=== PATIENT | male | born 1960 | race Caucasian/White ===

== ENCOUNTER → 2016-07-21 | Outpatient (CLI) | payer BC, OTHER ==
[~2016-07-21] MED LIST: AGG PO; ATOR-24 PO; CHOL1000 PO; FERR325T18 PO; INSU100I23 SQ; LISI-729 PO; NVLG SQ; RXC5 PO
[2016-07-21 13:26] LABS: ESTIMATED AVERAGE GLUCOSE 237 mg/dl; HA1C FLAG Normal (Normal)
[2016-07-21 14:18] LABS: ALT/SGPT 28 U/L (12-78); BLOOD UREA NITROGEN 14 mg/dl (7-18); BUN/CREATININE RATIO 14.7 (10-20); CARBON DIOXIDE 29 mmol/L (21-32); CHLORIDE 101 mmol/L (98-107); CHOLESTEROL 128 mg/dl (0-200); CREATININE 0.94 mg/dl (0.60-1.40); GLUCOSE 256 mg/dl (70-99); POTASSIUM 3.9 mmol/L (3.5-5.1); SODIUM 136 mmol/L (136-145); TRIGLYCERIDES 56 mg/dl (0-150); VERY LOW DENSITY LIPOPROT CALC 11 mg/dl
[2016-07-21 14:22] LABS: ALB/GLOB RATIO 1.2 (0.9-2); ALKALINE PHOSPHATASE 144 U/L (45-117); AST/SGOT 18 U/L (15-37); CHOLESTEROL/HDL RATIO 2.1; HDL CHOLESTEROL 61 mg/dl; LDL CHOLESTEROL CALCULATED 56 mg/dl
== END | disposition home or self-care (01) ==
LOC: C.LABMFLN 07:00
PROVIDERS: ATTEND Family Medicine
DX: E55.9 Vitamin D deficiency, unspecified (principal); E11.9 Type 2 diabetes mellitus without complications; I10 Essential (primary) hypertension; E78.5 Hyperlipidemia, unspecified; E53.8 Deficiency of other specified B group vitamins

== ENCOUNTER → 2016-10-21 | Outpatient (CLI) | payer OTHER ==
[~2016-10-21] MED LIST changes: -RXC5 PO
[2016-10-21 13:42] LABS: BASO % 0.2 %; BASO ABS # 0.01 K/uL (0-0.2); COMPLETE YES; HEMATOCRIT 37.8 % (42-52); IG% 0.4 %; LYMPH % 25.7 %; MEAN CELL VOLUME 76.8 fL (80-100); MEAN CORPUSCULAR HEMOGLOBIN 22.4 pg (25-34); MEAN CORPUSCULAR HGB CONC 29.1 g/dl (32-36); MEAN PLATELET VOLUME 10.9 fL (7.4-10.4); MONO % 8.7 %; PLATELET COUNT 262 K/uL (130-400); RED BLOOD COUNT 4.92 M/uL (4.7-6.1); WHITE BLOOD COUNT 5.06 K/uL (4.8-10.8)
[2016-10-21 13:59] LABS: ALT/SGPT 27 U/L (12-78); AST/SGOT 19 U/L (15-37); BLOOD UREA NITROGEN 11 mg/dl (7-18); BUN/CREATININE RATIO 11.2 (10-20); CARBON DIOXIDE 27 mmol/L (21-32); CHLORIDE 105 mmol/L (98-107); CREATININE 0.97 mg/dl (0.60-1.40); GLUCOSE 210 mg/dl (70-99); POTASSIUM 4.2 mmol/L (3.5-5.1); SODIUM 138 mmol/L (136-145)
[2016-10-21 14:03] LABS: ALB/GLOB RATIO 1.1 (0.9-2); ALKALINE PHOSPHATASE 130 U/L (45-117); CHOLESTEROL 115 mg/dl (0-200); CHOLESTEROL/HDL RATIO 2.3; HDL CHOLESTEROL 51 mg/dl; LDL CHOLESTEROL CALCULATED 54 mg/dl; TOTAL IRON BINDING CAPACITY 385 mcg/dl (250-450); TRIGLYCERIDES 51 mg/dl (0-150); VERY LOW DENSITY LIPOPROT CALC 10 mg/dl
[2016-10-22 07:25] LABS: ESTIMATED AVERAGE GLUCOSE 237 mg/dl; HA1C FLAG Normal (Normal)
== END | disposition home or self-care (01) ==
LOC: C.LABMFLN 07:00
PROVIDERS: ATTEND Family Medicine
DX: E55.9 Vitamin D deficiency, unspecified (principal); E11.9 Type 2 diabetes mellitus without complications; I10 Essential (primary) hypertension; E78.5 Hyperlipidemia, unspecified; E53.8 Deficiency of other specified B group vitamins

== ENCOUNTER 2017-01-26 07:07 | Inpatient (IN) | payer OTHER ==
[2017-01-05 11:14] VITALS: BMI 28.0
--- NOTE | 2017-01-05 11:45 | PAT Medication Instructions ---
Service Date Jan 05, 2017. Current Home Medication List Atorvastatin (Lipitor), 40 MG PO QAM Cholecalciferol (Vitamin D3), 1 TAB PO QAM Dipyridamole/Aspirin (Aggrenox 25-200 mg), 1 CAP PO BID Ferrous Gluconate (Ferrous Gluconate), 324 MG PO QAM Insulin Aspart (Novolog), 10-20 UNITS SQ AC Insulin Glargine (Basaglar Kwikpen), 50 UNITS SQ QAM Lisinopril (Zestril), 5 MG PO QAM Medication Instructions For Your Scheduled Surgery - Hold the following medications 2 weeks prior to surgery PER SURGEON'S INSTRUCTIONS (AND CHECK WITH YOUR PRESCRIBER): Dipyridamole/Aspirin (Aggrenox 25-200 mg), 1 CAP PO BID - Hold the following medications the morning of surgery: Lisinopril (Zestril), 5 MG PO QAM Insulin Aspart (Novolog), 10-20 UNITS SQ AC Ferrous Gluconate (Ferrous Gluconate), 324 MG PO QAM Cholecalciferol (Vitamin D3), 1 TAB PO QAM - Take the following medications the morning of surgery with a sip of water: Atorvastatin (Lipitor), 40 MG PO QAM - Take the following medications as scheduled the night before surgery: Insulin Aspart (Novolog), 10-20 UNITS SQ AC - For Insulin Dependent Diabetic patients: Test blood sugar A.M. of surgery. - If Blood sugar is GREATER THAN 150, take half of your regular dose of: Insulin Glargine (Basaglar Kwikpen), 50 UNITS SQ QAM - If Blood sugar is LESS THAN 150, do not take any: Insulin Glargine ( Basaglar Kwikpen), 50 UNITS SQ QAM If you have any questions please call us at [phone] or [phone] or [phone]
[2017-01-05 12:41] LABS: URINE APPEARANCE CLEAR (CLEAR); URINE BILIRUBIN NEG (NEG); URINE COLOR YELLOW; URINE NITRITE NEG (NEG); URINE SPECIFIC GRAVITY 1.031 (1.000-1.030); UROBILINOGEN NEG (NEG); ZZUR CULT IF INDIC CLEAN CATCH NO
[2017-01-05 12:42] LABS: BASO % 0.1 %; BASO ABS # 0.01 K/uL (0-0.2); COMPLETE YES; EOS % 0.6 %; HEMATOCRIT 40.7 % (42-52); IG% 0.1 %; LYMPH % 19.1 %; LYMPH ABS # 1.28 K/uL (1.2-3.4); MEAN CELL VOLUME 75.5 fL (80-100); MEAN CORPUSCULAR HEMOGLOBIN 22.4 pg (25-34); MEAN CORPUSCULAR HGB CONC 29.7 g/dl (32-36); MEAN PLATELET VOLUME 10.1 fL (7.4-10.4); MONO % 6.4 %; NEUT % 73.7 %; PLATELET COUNT 253 K/uL (130-400); RED BLOOD COUNT 5.39 M/uL (4.7-6.1); WHITE BLOOD COUNT 6.69 K/uL (4.8-10.8)
[2017-01-05 12:43] LABS: MANUAL MICROSCOPIC REQUIRED? NO; REVIEW REQ? NO
[2017-01-05 12:54] LABS: BUN/CREATININE RATIO 18.2 (10-20); CALCIUM 8.6 mg/dl (8.5-10.1); CREATININE 0.92 mg/dl (0.60-1.40); POTASSIUM 4.6 mmol/L (3.5-5.1)
[~2017-01-26] VITALS: Ht 195.6 cm; Wt 107.9 kg
[2017-01-26] VITALS (10 sets, daily range): BP systolic 123–160; BP diastolic 67–90; PULSE 69–113; TEMP 36.4–36.9; O2SAT 96–100; BMI 28.0
[~2017-01-26 07:07] MED LIST changes: +CEFAZOLIN 2000MG IV PUSH 10 ML IV SCH; +LACTATED RINGER'S 1000ML 1,000 ML IV SCH
[2017-01-26 07:57] LABS: PROTHROMBIN TIME (PATIENT) 10.8 SECONDS (9.0-12.0)
[2017-01-26] MEDS ORDERED: MIDAZOLAM HCL 1 MG/ML 2ML VIAL ONE (09:00)
[2017-01-26] MEDS ORDERED: FENTANYL CITRATE INJ 50 MCG/1 ML 2 ML VIAL ONE ×4 (09:00→11:50)
--- NOTE | 2017-01-26 09:20 | History & Physical Bridge Note ---
H&P Re-Evaluation Bridge Note: I have examined the patient, reviewed the History & Physical and in the interval since the performance of the History & Physical I have noted the following changes of clinical significance: No changes noted
--- NOTE | 2017-01-26 09:21 | History and Physical ---
History & Physical Date Jan 26, 2017. Chief Complaint Back and leg pain History of Present Illness The patient is a 56 year old male with complaints of back and leg pain Additional History Hepatic Disease: No Endocrine Disorder: No Kidney Disease: No Hypertension: Yes Heart Disease: No Bleeding Tendencies: No Infectious Diseases: No Allergies Coded Allergies: No Known Allergies (Unverified , 01/26/17) Home Medications Scheduled Atorvastatin (Lipitor), 40 MG PO QAM Cholecalciferol (Vitamin D3), 1 TAB PO QAM Dipyridamole/Aspirin (Aggrenox 25-200 mg), 1 CAP PO BID Ferrous Gluconate (Ferrous Gluconate), 324 MG PO QAM Insulin Aspart (Novolog), 10-20 UNITS SQ AC Insulin Glargine (Basaglar Kwikpen), 50 UNITS SQ QAM Lisinopril (Zestril), 5 MG PO QAM Physical Examination Skin: warm/dry, no rash Eyes: normal inspection, EOMI, sclerae normal ENT: normal ENT inspection, pharynx normal Head: normocephalic, atraumatic Neck: supple, no adenopathy, trachea midline Respiratory/Chest: lungs clear, normal breath sounds, no respiratory distress Cardiovascular: regular rate, rhythm, no edema, no murmur Abdomen / GI: normal bowel sounds, non tender Back: normal inspection Extremities: normal inspection, normal range of motion Neurologic/Psych: no motor/sensory deficits, alert, normal reflexes, oriented x 3 Diagnosis Lumbar spinal stenosis Plan of Treatment L4-L5 decompression fusion
[2017-01-26] MEDS ORDERED: BUPIVACAINE/EPINEPHRINE 0.5% MPF 1:200,000 30 ML VIAL ONE (09:44)
[2017-01-26] MEDS ORDERED: BACITRACIN 50000 UNIT VIAL ONE (09:44)
[2017-01-26] MEDS ORDERED: HYDROmorphone INJ 2 MG/ML SYR/VIAL ONE ×2 (10:15→11:48)
[2017-01-26] MEDS ORDERED: ONDANSETRON INJ 2 MG/ML 2 ML VIAL IV PRN ×2 (10:30→12:00)
[2017-01-26] MEDS ORDERED: ATROPINE SULFATE 0.1 MG/ML 5ML SYR IV PRN (10:30)
[2017-01-26] MEDS ORDERED: LABETALOL HCL IV 5 MG/ML 20ML IV PRN (10:30)
[2017-01-26] MEDS ORDERED: FLOSEAL HEMOSTATIC MATRIX 10ML TOP ONE (11:43)
[2017-01-26] MEDS ORDERED: DEXAMETHASONE SOD INJ 4 MG/ML VIAL ONE (11:45)
[2017-01-26] MEDS ORDERED: LIDOCAINE HCL 2% 2 ML VIAL (20MG/ML) ONE (11:45)
[2017-01-26] MEDS ORDERED: ROCURONIUM BROMIDE 10 MG/ML 5 ML VIAL IV ONE (11:45)
[2017-01-26] MEDS ORDERED: PROPOFOL IV EMULSION 10 MG/ML 20 ML VIAL IV ONE (11:45)
[2017-01-26] MEDS ORDERED: PHENYLEPHRINE 100MCG/ML 5ML SYR ONE (11:45)
[2017-01-26] MEDS ORDERED: NEOSTIGMINE METHYLSULFATE 1 MG/ML 10ML VIAL ONE (11:49)
[2017-01-26] MEDS ORDERED: KETOROLAC TROMETHAMINE 30 MG/ML VIAL ONE (11:49)
[2017-01-26] MEDS ORDERED: SODIUM CHLORIDE 0.9% 1000ML 1,000 ML IV SCH (11:49)
[2017-01-26] MEDS ORDERED: GLYCOPYRROLATE INJ 0.2 MG/ML VIAL ONE (11:49)
[2017-01-26] MEDS ORDERED: PROMETHAZINE HCL INJ 12.5 MG in SODIUM CHLORIDE 0.9% 50ML 50 ML IV PRN (12:00)
[2017-01-26] MEDS ORDERED: ACETAMINOPHEN 500 MG TAB PO PRN (12:00)
[2017-01-26] MEDS ORDERED: DO NOT ADMINISTER FLU VACCINE PRN ×3 (12:00)
[2017-01-26] MEDS ORDERED: SOD PHOSPHATE/SOD BIPHOSPHATE ENEMA 132 ML BTL PR PRN (12:00)
[2017-01-26] MEDS ORDERED: ACETAMINOPHEN IV 100 ML IV PRN (12:00)
[2017-01-26] MEDS ORDERED: hydrOXYzine HCL 25 MG TAB PO PRN (12:00)
[2017-01-26] MEDS ORDERED: DO NOT ADMINISTER PNEUMOCOCCAL VACCINE PRN ×2 (12:00)
[2017-01-26] MEDS ORDERED: BISACODYL 10 MG SUPP PR PRN (12:00)
[2017-01-26] MEDS ORDERED: ALUMINUM/MAGNESIUM SUSP 30 ML UDC PO PRN (12:00)
[2017-01-26] MEDS ORDERED: LORAZEPAM 0.5 MG TAB PO PRN (12:00)
[2017-01-26] MEDS ORDERED: NALOXONE HCL 0.4 MG/1 ML VIAL/CARP IV PRN (12:00)
[2017-01-26] MEDS ORDERED: LORAZEPAM INJ 0.5 MG in SYRINGE 0.75 ML IV PRN (12:00)
[2017-01-26] MEDS ORDERED: METOCLOPRAMIDE HCL INJ 5 MG/ML 2 ML VIAL IV PRN (12:00)
[2017-01-26] MEDS ORDERED: MAGNESIUM HYDROXIDE SUSP 30 ML UDC PO PRN (12:00)
[2017-01-26] MEDS ORDERED: FAMOTIDINE 20 MG TAB PO PRN (12:00)
[2017-01-26] MEDS ORDERED: HYDROmorphone HCL 0.5MG/ML 50 ML CASSETTE ONE (12:07)
--- NOTE | 2017-01-26 12:25 | [facility] Operative Report ---
Operative Report Operative Date Jan 26, 2017. Pre-Operative Diagnosis Lumbar spinal stenosis Post-Operative Diagnosis Lumbar spinal stenosis Procedure(s) Performed #1 lumbar decompression medial facetectomies foraminotomies L3 4 L4 5. #2 posterior spinal fusion L4 5. #3 placement posterior instrumentation L4 5. #4 interbody fusion L4 5. #5 placement peek cage 13 x 26 mm at L4 5. #6 placement locally harvested morcellized autograft in the posterior lateral gutters. #7 placement of ostial amp bone graft in the interbody space and posterior gutters. Surgeon Dr. Nicanor Camacho Animated Cartoons Painter Surgeon(s) Christine Doe PA-C Estimated Blood Loss 650mL Findings Severe spinal stenosis Specimens None Description of Procedure Patient was met with preoperatively case discussed all questions are dressed. That point patient was taken back to the operative suite after undergoing successful intubation placed in a prone position the [place] table top Prasad frame all bony promises well-padded eyes inspected to ensure that no external pressure placed upon them. This point the lumbar spine was prepped and draped in the normal sterile fashion. Sharp dissection with the assistance of Bovie cautery was performed onto an exposing the lamina and transverse processes of L4 and L5. From a caudal cephalad fashion complete laminectomy of L4 partial laminectomy L3 was performed addressing severe lateral recess and foraminal stenosis. Pedicle screws then placed in L4-L5 bilaterally with assistance of fluoroscopy in the purposes angela placed. Through a transforaminal approach on the right complete discectomy of L4 5 was performed and plate created to subcortical bleeding bone and a 13 x 26 mm peek cage filled with ostial amp bone graft tapped into position. The rods were then locked and final position bilaterally. The transverse processes of L4 and L5 burred to subcortical bleeding bone. The remaining osteo-amp and locally harvested morcellized autograft was placed and posterior gutters. 15 round MAMTA drain inserted. Incision was then closed with 1 Vicryl in the fascia 2-0 Vicryl subcutaneous C 4 Monocryl for final skin closure Steri-Strips sterile dressings placed. Patient we can take PACU stable condition. Please note Christine Horvath was present at the entire procedure involved in patient positioning complex portions of the surgery and final skin closure. I attest to the content of the Intraoperative Record and any orders documented therein. Any exceptions are noted below.
[2017-01-26] MEDS: HYDROmorphone INJ 2 MG/ML SYR/VIAL IV PRN ×2 (12:41→12:47)
[2017-01-26] MEDS ORDERED: PHARMACY GLYCEMIC MGMT CONSULT PRN (12:56)
--- NOTE | 2017-01-26 13:12 | Anesthesiology Progress Note ---
Anesthesia Post Op Note Date & Time Jan 26, 2017 at 13:12 Vital Signs Vital Signs Past 12 Hours Date Time Temp Pulse Resp B/P (MAP) Pulse Ox O2 Delivery O2 Flow Rate FiO2 01/26/17 12:01 36.6 86 18 172/103 100 Mask 10 01/26/17 07:49 36.9 78 18 141/89 97 Room Air Notes Mental Status: alert / awake / arousable, participated in evaluation Pt Amnestic to Procedure: Yes Nausea / Vomiting: adequately controlled Pain: adequately controlled Airway Patency, RR, SpO2: stable & adequate BP & HR: stable & adequate Hydration State: stable & adequate Anesthetic Complications: no major complications apparent
--- NOTE | 2017-01-26 13:20 | DIAGNOSTIC IMAGING REPORT ---
LUMBAR SPINE 2 OR 3 VIEW HISTORY: 56 years-old Male L4-5 DECOMPRESSION/FUSION status post L4-L5 decompression and fusion COMPARISON: None available TECHNIQUE: 2 spot fluoroscopic images of the lumbar spine were obtained utilizing 11.5 seconds fluoroscopy time. Interpretation was performed after the conclusion of the surgery. FINDINGS: Status post discectomy with posterior interbody angela and screw fusion and laminectomy at L4-L5. Alignment appears satisfactory. Mild spondylitic spurring noted. IMPRESSION: Fluoroscopic assistance as above. Please see procedural report for further details. The above report was generated using voice recognition software. It may contain grammatical, syntax or spelling errors. Electronically signed by: Eddie Moser M.D. 01/26/2017 1:18 PM Dictated Date/Time: 01/26/2017 1:17 PM
[2017-01-26] MEDS ORDERED: GLUCAGON FOR INJ 1 MG VIAL SQ PRN (14:00)
[2017-01-26] MEDS ORDERED: DEXTROSE 50% 50 ML SYR IV PRN (14:00)
[2017-01-26] MEDS ORDERED: GLUCOSE 10 TABS/TUBE PO PRN (14:00)
[2017-01-26] MEDS ORDERED: GLUCOSE 40% GEL 15 GM TUBE PO PRN (14:00)
--- NOTE | 2017-01-26 14:02 | Pharmacy Progress Note ---
Glycemic Control Intl Consult Date of Service Jan 26, 2017. Scope Glycemic Pharmacist consulted by Dr Camacho on 01/26/17 for glycemic control and to write orders per [facility] inpatient glycemic control protocol Objective Weight (Kilograms): 107.90 Accuchecks BSG (last 24hrs): Test 01/26/17 07:57 01/26/17 12:21 Bedside Glucose 145 mg/dl (70-99) 188 mg/dl (70-99) Recent Pertinent Medications Outpatient Anti-diabetic Regimen: * Insulin glargine 50 units SQ qAM + Novolog 10-20 units AC * 25 units taken on day of surgery * A1c = 9.9 % 10/21/16 Risk Factors for Insulin Resistance: * Steroids: Dexamethasone 12 mg IV pre-op, then 6 mg IV q8h x 3 * Recent Surgery: POD #0 lumbar decompression and fusion * Diet: T2DM Assessment & Plan ASSESSMENT: * 56 yr old T2DM male s/p L4-L5 decompression and fusion. * Pt maintained on 80-110 units of insulin per day as outpatient; A1c 9.9% > 3 months ago. A1c ordered for tomorrow. * Pt ordered high dose IV steroids x 24 hours post operatively. * Initial insulin doses will be determined by stressing the pt's home dose; average of ~95 units/day + stress of 2-3 * ADA & AACE recommend a goal blood sugar range 140-180 mg/dl for the majority of critically ill & non-critically ill patients. However, more stringent targets may be selected in individual cases. Will utilize more stringent goal of 110-140mg/dl based on patient age & comorbidities. Additionally, tighter glycemic control is warranted to facilitate wound/infection healing. PLAN FOR INPATIENT GLYCEMIC CONTROL: * Basal insulin with LANTUS * 25 units SQ (taken this am prior to admission) * 60 units SQ today with dinner * Further orders will be based on fasting BSG on 01/27 * Correctional Insulin with NOVOLOG per scale ACHS * Goal Range: Low 110 mg/dL - High 140 mg/dL * Correction Factor: 10 mg/dL/unit * Nutritional / Prandial insulin per carb ratio of 1 unit per 3 grams CHO consumed * Overnight check with coverage at 00 and 04 * Please note that the plan above was derived based on current level of insulin resistance and hospital stress. These recommendations are appropriate for inpatient admission only. Plan of care upon discharge will need to be reassessed to avoid potential outpatient hypo/hyperglycemia. Thank you.
[2017-01-26] MEDS: HYDROmorphone HCL 0.5MG/ML 50 ML CASSETTE IV PRN ×3 (14:19→23:18)
[2017-01-26] MEDS: LACTATED RINGER'S 1000ML 1,000 ML IV SCH ×2 (15:53→20:52)
[2017-01-26] MEDS ORDERED: INSULIN GLARGINE SOLOSTAR 100 UNITS/ML 3 ML PEN SC ONE (17:45)
[2017-01-26] MEDS: INSULIN ASPART 100 UNITS/ML 3 ML PEN SC SCH ×2 (17:59→21:57)
[2017-01-26] MEDS: CEFAZOLIN IV 2,000 MG in SYRINGE 0 ML IV SCH (18:06)
[2017-01-26] MEDS: DEXAMETHASONE INJ 6 MG in SYRINGE 0 ML IV SCH (18:06)
[2017-01-26] MEDS: DOCUSATE SODIUM/SENNA 50/8.6MG TAB PO SCH (20:52)
[2017-01-27] MEDS: DEXAMETHASONE INJ 6 MG in SYRINGE 0 ML IV SCH ×2 (02:18→10:24)
[2017-01-27] MEDS: LACTATED RINGER'S 1000ML 1,000 ML IV SCH (02:18)
[2017-01-27] MEDS: CEFAZOLIN IV 2,000 MG in SYRINGE 0 ML IV SCH (02:18)
[2017-01-27 04:00] VITALS: BP 125/67; PULSE 67; TEMP 36.9; O2SAT 97
[2017-01-27] MEDS: INSULIN ASPART 100 UNITS/ML 3 ML PEN SC SCH ×6 (04:00→21:53)
[2017-01-27] MEDS ORDERED: NURSING DECISION MEDICATION ORDER SCH (05:00)
[2017-01-27] MEDS ORDERED: HYDROmorphone INJ 1 MG/ML SYR IV PRN (06:00)
[2017-01-27] MEDS ORDERED: HYDROmorphone INJ 0.5 MG/0.5 ML SYR IV PRN (06:00)
[2017-01-27] MEDS ORDERED: DC PCA SCH (06:00)
[2017-01-27] MEDS ORDERED: NALOXONE HCL 0.4 MG/1 ML VIAL/CARP IV PRN (06:00)
[2017-01-27] MEDS ORDERED: VOLUVEN IN NSS ONE (06:32)
[2017-01-27 07:10] VITALS: BP 125/68; PULSE 66; TEMP 36.9; O2SAT 96
[2017-01-27 07:25] LABS: COMPLETE YES; HEMATOCRIT 32.4 % (42-52); IG% 0.3 %; LYMPH % 4.9 %; LYMPH ABS # 0.58 K/uL (1.2-3.4); MEAN CELL VOLUME 75.9 fL (80-100); MEAN CORPUSCULAR HEMOGLOBIN 22.7 pg (25-34); MEAN CORPUSCULAR HGB CONC 29.9 g/dl (32-36); MEAN PLATELET VOLUME 10.5 fL (7.4-10.4); MONO % 3.7 %; NEUT % 91.1 %; PLATELET COUNT 229 K/uL (130-400); RED BLOOD COUNT 4.27 M/uL (4.7-6.1); WHITE BLOOD COUNT 11.79 K/uL (4.8-10.8)
[2017-01-27] MEDS ORDERED: RXC5 PO (07:31)
--- NOTE | 2017-01-27 07:32 | Discharge Instructions ---
Discharge Instructions Date of Service Jan 27, 2017. Admission Reason for Admission: Spinal Stenosis Discharge Discharge Diagnosis / Problem: lumbar spinal stenosis Discharge Goals Goal(s): Improve function Activity Recommendations Activity Limitations: per Instructions/Follow-up section . Instructions / Follow-Up Instructions / Follow-Up ACTIVITY RECOMMENDATIONS: SELF CARE INSTRUCTIONS AFTER THORACIC/LUMBAR FUSIONS 1. You may walk to your tolerance. It is good exercise for your legs and back. Expect some back and intermittent leg aches and pains. 2. You may perform "counter-top" level activities (make a sandwich, larry with a project, etc.). 3. No bending or lifting of more than 10 pounds or back twisting of any nature (roll like a log when turning in bed). 4. You may ride in a car for 20-30 minutes at a time. No driving until after your first visit with your doctor. 5. Frequent changes of position and restricting sitting to 30 minutes at a time will help limit the amount of back spasms and stiffness you may experience. 6. You may discontinue the use of ambulatory aids (cane, crutches, etc.) once your strength and confidence allow. 7. You may staff development coordinator the shower and let water strike your incision when you arrive home at least once daily. Do not take a tub bath, sit in a hot tub or go into a swimming pool until after your first recheck in the office. SPECIAL CARE INSTRUCTIONS: VERY IMPORTANT TO READ AND REVIEW A. Your surgical incision has been closed with a cosmetic suture under the skin that will dissolve in about 6 weeks. In 14 days, you can use a pair of clean scissors and cut the suture that is left outside of the skin at the ends of your incision. 1. The small skin tapes can be removed 7 days after surgery if they have not fallen off by that point. 2. You may keep the wound open to air as much as possible to promote healing after post-op day number 5 unless told otherwise by your doctor. 3. If you think the wound looks like it is becoming infected (redness or worsening drainage) and/or you are experiencing fever, chill or worsening back pain and muscle spasms, contact the office so that we may evaluate you as soon as possible. B. Complications are uncommon, but please contact us if you have any signs or symptoms of: 1. wound infection (fever higher than 102.5 degrees F, redness, separation of wound, drainage, or increasing pain from the incision) 2. blood clots in legs (pain, swelling, redness and warmth in legs) 3. urinary tract infection (fever higher than 102.5 degrees F, burning upon urination or increased frequency of urination) 4. nerve problems (inability to walk on your toes or heels, numbness, loss of bowel or bladder control) 5. any other symptoms that concern you C. Please call the office at if you have any concerns or questions about your operation or recovery. D. No smoking! Smoking drastically decreases the chance of a solid fusion. E. Do not take any anti-inflammatory medications (Indocin, Advil, Motrin, Aspirin, Naprosyn, etc.) as these may inhibit the chance of a solid fusion. Tylenol is okay to take for pain. MANAGING PAIN AFTER SPINAL SURGERY 1. Narcotic medication is intended for short-term use and will be provided for surgical pain. Surgical pain usually lasts for a period of 4-6 weeks. Narcotic medication includes Percocet, Vicodin, Darvocet, Tylenol #3 or Lortab. 2. Longer-term pain is more appropriately treated with non-narcotic medication such as Tylenol ES. 3. Muscle spasm is not appropriately treated with narcotics. Muscle relaxers such as Soma, Flexeril or Skelaxin can be used along with Tylenol ES. 4. Remember that we all live with some "aches and pains". This is not unusual or uncommon after an injury or as we get older. a. Back pain is expected and may include muscle spasms for 4 to 6 weeks after surgery. The pain should gradually improve. If the pain worsens for no apparent reason, please contact the office. b. Intermittent leg pain may also be experienced and should not be concerned about unless it worsens for no apparent reason. If so, please contact the office. 5. We will provide appropriate medication within the normal guidelines of their prescribed use. We will also be very cautious and aware of potential abuse and extended duration of patients' medication needs. a. Pain medications are for your comfort and to assist with sleep and rest so that the tissue can heal. They are not provided in order to return to normal activity and should not be used through the day. To do so or worsening pain at night can result from ongoing tissue damage and development of tolerance to the prescribed medicine. 6. Please allow 2-3 days to process refills. Prescriptions will not be mailed but must be picked up at the office. FOLLOW UP VISIT: Keep your scheduled follow-up appointment. Any questions, please call the office at . Current Hospital Diet Patient's current hospital diet: Diabetes Type 2 Diet Discharge Diet Recommended Diet: Regular Diet Procedures Procedures Performed: #1 lumbar decompression medial facetectomies foraminotomies L3 4 L4 5. #2 posterior spinal fusion L4 5. #3 placement posterior instrumentation L4 5. #4 interbody fusion L4 5. #5 placement peek cage 13 x 26 mm at L4 5. #6 placement locally harvested morcellized autograft in the posterior lateral gutters. #7 placement of ostial amp bone graft in the interbody space and posterior gutters. Pending Studies Studies pending at discharge: no Laboratory Results Hemoglobin A1c Test 01/27/17 06:48 Range/Units Medical Emergencies . Who to Call and When: Medical Emergencies: If at any time you feel your situation is an emergency, please call 911 immediately. . Non-Emergent Contact Non-Emergency issues call your: Primary Care Provider . "Provider Documentation" section prepared by Nicanor Camacho. . VTE Core Measure Inpt VTE Proph given/why not?: Renetta Melgar, AGUST[facility]'s
[2017-01-27 07:51] LABS: CALCIUM 8.6 mg/dl (8.5-10.1); CREATININE 0.85 mg/dl (0.60-1.40); POTASSIUM 4.4 mmol/L (3.5-5.1)
[2017-01-27 08:20] LABS: ESTIMATED AVERAGE GLUCOSE 209 mg/dl; HA1C FLAG Normal (Normal)
[2017-01-27] MEDS: ATORVASTATIN 40 MG TAB PO SCH (08:35)
[2017-01-27] MEDS: LISINOPRIL 5 MG TAB PO SCH (08:36)
[2017-01-27] MEDS: OXYCODONE HCL IR 5 MG TAB (IMMEDIATE RELEASE) PO PRN ×4 (08:39→23:53)
[2017-01-27] MEDS ORDERED: INSULIN GLARGINE SOLOSTAR 100 UNITS/ML 3 ML PEN SC SCH ×2 (09:00→21:00)
[2017-01-27] MEDS ORDERED: KETOROLAC TROMETHAMINE 30 MG/ML VIAL IV PRN (10:15)
[2017-01-27 11:06] VITALS: BP 143/74; PULSE 71; TEMP 36.5; O2SAT 96
[2017-01-27 13:29] VITALS: Ht 195.6 cm; Wt 107.9 kg
--- NOTE | 2017-01-27 13:51 | Pharmacy Progress Note ---
Glycemic Control Progress Note Date of Service Jan 27, 2017. Scope Glycemic Pharmacist consulted for glycemic control to write orders per [facility] inpatient glycemic control protocol. Objective Accuchecks BSG (last 24hrs): Test 01/26/17 17:28 01/26/17 20:33 01/26/17 23:58 01/27/17 04:00 Bedside Glucose 276 mg/dl (70-99) 285 mg/dl (70-99) 127 mg/dl (70-99) 140 mg/dl (70-99) Test 01/27/17 06:48 01/27/17 07:59 01/27/17 12:03 Random Glucose 147 mg/dl (70-99) Bedside Glucose 170 mg/dl (70-99) 236 mg/dl (70-99) HbA1c: Test 01/27/17 06:48 Hemoglobin A1c 8.9 % (4.5-5.6) H Recent Pertinent Medications Risk Factors for Insulin Resistance: * Steroids: Dexamethasone 12 mg IV pre-op, then 6 mg IV q8h x 3 (last dose @ 1000) * Recent Surgery: POD #1 lumbar decompression and fusion * Diet: T2DM Outpatient Anti-Diabetic Meds * Insulin glargine 50 units SQ qAM + Novolog 10-20 units AC Assessment & Plan ASSESSMENT: * 56 yr old T2DM male POD #1 s/p L4-L5 decompression and fusion. * Patient received 133 units of insulin over the past 24 hours * BSGs ranged from 127 to 285 mg/dL * 85 units of basal insulin * 48 units of bolus insulin (only represents 12 hr) * Fasting BSG of 170 mg/dL is above goal range. Lantus scale will be added tonight. Will attempt to keep majority of Lantus dose in the morning to aid with transition back to home regimen. * Post prandial BSG's are above goal range. Continue aggressive CF/CR until effects of dexamethasone have worn off. Continue overnight checks with coverage for tonight. PLAN FOR INPATIENT GLYCEMIC CONTROL: * Basal insulin * Lantus 60 units SQ this am * Lantus 10-20 units SQ qPM * Bolus insulin * NOVOLOG per scale ACHS * Goal Range: Low 110 mg/dL - High 140 mg/dL * Correction Factor: 10 mg/dL/unit * Nutritional / Prandial insulin per carb ratio of 1 unit per 3 grams CHO consumed * Overnight check with coverage at 00 and 04 DISCHARGE RECOMMENDATIONS: * Most recent A1c of 8.9 % from 01/27 has improved from 9.9%. This remains above goal for patient based on age and comorbidities. * Resume home regimen on discharge - continue to titrate per out patient regimen. * Please note that the plan above was derived based on current level of insulin resistance and hospital stress. These recommendations are appropriate for inpatient admission only. Plan of care upon discharge will need to be reassessed to avoid potential outpatient hypo/hyperglycemia. Thank you.
--- NOTE | 2017-01-27 14:08 | Progress Note ---
Progress Note Date of Service Jan 27, 2017. Progress Note Patient is status post lumbar decompression fusion. His leg pain is markedly improved. Back pain controlled. Vital signs stable. On exam he is comfortable has good strength testing. Assessment status post lumbar depression fusion replant this time will maintain the MAMTA drain in place for another 24 hours assess his progress tomorrow and possibly discharge home.
[2017-01-27 15:12] VITALS: BP 129/71; PULSE 71; TEMP 36.7; O2SAT 100
[2017-01-27 18:57] VITALS: BP 125/76; PULSE 82; TEMP 36.6; O2SAT 99
[2017-01-27] MEDS: DOCUSATE SODIUM/SENNA 50/8.6MG TAB PO SCH (22:51)
[2017-01-27 23:39] VITALS: BP 120/72; PULSE 68; TEMP 36.4; O2SAT 99
[2017-01-28] MEDS: INSULIN ASPART 100 UNITS/ML 3 ML PEN SC SCH ×4 (04:00→13:08)
[2017-01-28 04:02] VITALS: BP 130/70; PULSE 69; TEMP 36.7; O2SAT 99
[2017-01-28] MEDS: OXYCODONE HCL IR 5 MG TAB (IMMEDIATE RELEASE) PO PRN ×2 (04:51→12:16)
[2017-01-28] MEDS: POLYETHYLENE (MIRALAX) 17 GM PACK PO SCH ×2 (05:26→11:49)
[2017-01-28 07:10] VITALS: BP 112/68; PULSE 84; TEMP 36.6; O2SAT 97
[2017-01-28] MEDS: LISINOPRIL 5 MG TAB PO SCH (08:28)
[2017-01-28] MEDS: ATORVASTATIN 40 MG TAB PO SCH (08:28)
[2017-01-28] MEDS ORDERED: INSULIN GLARGINE SOLOSTAR 100 UNITS/ML 3 ML PEN SC SCH (09:00)
--- NOTE | 2017-01-28 10:51 | Pharmacy Progress Note ---
Glycemic Control Progress Note Date of Service Jan 28, 2017. Scope Glycemic Pharmacist consulted for glycemic control to write orders per [facility] inpatient glycemic control protocol. Objective Accuchecks BSG (last 24hrs): Test 01/27/17 12:03 01/27/17 17:10 01/27/17 21:17 01/27/17 23:56 Bedside Glucose 236 mg/dl (70-99) 102 mg/dl (70-99) 156 mg/dl (70-99) 175 mg/dl (70-99) Test 01/28/17 04:06 01/28/17 08:17 Bedside Glucose 136 mg/dl (70-99) 211 mg/dl (70-99) HbA1c: Test 01/27/17 06:48 Hemoglobin A1c 8.9 % (4.5-5.6) H Recent Pertinent Medications The patient is currently receiving: * Basal insulin: Lantus 60 units every 24 hours in the morning * Correctional Insulin: Novolog Correction per scale ACHS Goal Range: Low 110 mg/dL - High 140 mg/dL Correction Factor: 10 mg/dL/unit * Prandial insulin: Per carb ratio of 1 unit per 3 grams CHO consumed Outpatient Anti-Diabetic Meds Lantus 50 units qAM and Novolog 10-20 units AC (total 80-110 units/day) Assessment & Plan ASSESSMENT: * See progress note from 01/26/17 for more background info, in short: * Pt receiving SQ basal bolus insulin regimen for hyperglycemia secondary to baseline DM (outpatient regimen on hold), POD 2 for spinal surgery. * Patient is currently receiving an average of ~150 units of insulin per day * 80 units of basal insulin * 72 units of prandial/correctional insulin * BSGs ranging 102 - 236 mg/dl over the past 24hrs * Changes needed to insulin regimen: * AM Fasting BSG = 211 mg/dl. This is above goal range for patient based on inpatient targets and co-morbidities. This is the first day after steroids were given. Will continue the elevated dose of once daily Lantus *which reflects home dose stressed by 2*. Will provide a scale for tomorrow morning as uncertain how long steroid effects with linger. * Post-prandial BSGs appear to relatively well controlled by current ratio. Suspect that patient may require tighter carbohydrate control as after breakfast and supper the blood sugars were elevated. Monitor closely and tighten at lunch today if necessary. * Total daily dose = ~140-150 units/day. Suspect that patient's insulin requirements will decrease as steroid effects dissipate. PLAN FOR INPATIENT GLYCEMIC CONTROL: * STARTING Lantus 50-60 units SQ qAM (Lantus 50 units if blood sugar 180 mg/dL or less and Lantus 60 units if blood sugar greater than 180 mg/dL) * Continuing correction factor of 10 mg/dl/unit * Continuing carb ratio of 1 unit per 3 grams CHO consumed * Continuing goal range of Low 110 mg/dL - High 140 mg/dL RECOMMENDATIONS FOR DISCHARGE: * Patient's HbA1C is elevated with goal of HbA1C of 6.6-7.5% according to Elements of Diabetes Care Scoring Scale. Recommend counseling for diet and exercise as well as titrating insulin to goal blood sugars. Thank you.
--- NOTE | 2017-01-28 10:59 | Discharge Summary ---
Orthopedic Discharge Summary Admission Date/Reason Jan 26, 2017 at 09:30 Spinal Stenosis. Discharge Date/Disposition Jan 28, 2017 Home Diagnosis Principal Diagnosis: Lumbar spinal stenosis Admission Physical Exam As per Admitting History & Physical. Hospital Course Patient underwent lumbar decompression fusion tolerated this well was taken to the orthopedic floor postoperatively. Postoperative day #1 he was up and amatory progressed to postoperative day #2. MAMTA drain decreased appropriately. Subsequently is discharged home. Discharge orders and instructions can be found on the chart for further review. Discharge Instructions Please refer to the electronic Patient Visit Report (Discharge Instructions) for additional information.
[2017-01-28] MEDS ORDERED: INSULIN ASPART 100 UNITS/ML 3 ML PEN SC SCH (12:00)
[2017-01-28 13:24] VITALS: BP 112/68; PULSE 84; TEMP 36.6; O2SAT 97
[2017-01-29] MEDS ORDERED: INSULIN ASPART 100 UNITS/ML 3 ML PEN SC SCH (02:00)
[2017-01-29] MEDS ORDERED: INSULIN GLARGINE SOLOSTAR 100 UNITS/ML 3 ML PEN SC SCH (09:00)
== END 2017-01-28 14:24 | disposition home or self-care (01) | DRG 460 ==
LOC: C.ACU 07:07 → C.3E 09:30 → ENRESERV 13:17
PROVIDERS: ADMIT Orthopaedic Surgery Orthopaedic Surgery of the Spine; ATTEND Orthopaedic Surgery Orthopaedic Surgery of the Spine
PROC: 0SG10AJ Fusion of 2 or more Lumbar Vertebral Joints with Interbody Fusion Device, Posterior Approach, Anterior Column, Open Approach (ICD-10-PCS; principal; 2017-01-26 09:15)
DX: M48.061 Spinal stenosis, lumbar region without neurogenic claudication (principal)

== ENCOUNTER → 2017-03-10 | Outpatient (CLI) | payer OTHER ==
[~2017-03-10] MED LIST changes: -CEFAZOLIN 2000MG IV PUSH 10 ML IV SCH; -LACTATED RINGER'S 1000ML 1,000 ML IV SCH; +RXC5 PO
[2017-03-10 17:51] LABS: BASO % 0.3 %; BASO ABS # 0.02 K/uL (0-0.2); COMPLETE YES; EOS % 0.8 %; HEMATOCRIT 37.2 % (42-52); IG% 0.2 %; LYMPH % 24.9 %; LYMPH ABS # 1.61 K/uL (1.2-3.4); MEAN CELL VOLUME 77.7 fL (80-100); MEAN CORPUSCULAR HEMOGLOBIN 22.8 pg (25-34); MEAN CORPUSCULAR HGB CONC 29.3 g/dl (32-36); MEAN PLATELET VOLUME 9.9 fL (7.4-10.4); MONO % 6.5 %; NEUT % 67.3 %; PLATELET COUNT 279 K/uL (130-400); RED BLOOD COUNT 4.79 M/uL (4.7-6.1); WHITE BLOOD COUNT 6.47 K/uL (4.8-10.8)
[2017-03-10 18:25] LABS: ALT/SGPT 30 U/L (12-78); AST/SGOT 16 U/L (15-37); BLOOD UREA NITROGEN 11 mg/dl (7-18); BUN/CREATININE RATIO 13.1 (10-20); CALCIUM 8.8 mg/dl (8.5-10.1); CARBON DIOXIDE 28 mmol/L (21-32); CHLORIDE 106 mmol/L (98-107); CHOLESTEROL 113 mg/dl (0-200); CREATININE 0.83 mg/dl (0.60-1.40); GLUCOSE 94 mg/dl (70-99); SODIUM 137 mmol/L (136-145); TRIGLYCERIDES 71 mg/dl (0-150); VERY LOW DENSITY LIPOPROT CALC 14 mg/dl
[2017-03-10 18:29] LABS: ALB/GLOB RATIO 1.1 (0.9-2); ALKALINE PHOSPHATASE 136 U/L (45-117); CHOLESTEROL/HDL RATIO 2.1; HDL CHOLESTEROL 53 mg/dl; LDL CHOLESTEROL CALCULATED 46 mg/dl; TOTAL IRON BINDING CAPACITY 423 mcg/dl (250-450)
[2017-03-11 07:40] LABS: ESTIMATED AVERAGE GLUCOSE 197 mg/dl; HA1C FLAG Normal (Normal)
== END | disposition home or self-care (01) ==
LOC: C.LABMFLN 16:38
PROVIDERS: ATTEND Family Medicine
DX: E55.9 Vitamin D deficiency, unspecified (principal); I10 Essential (primary) hypertension; E78.5 Hyperlipidemia, unspecified; E53.8 Deficiency of other specified B group vitamins; D50.9 Iron deficiency anemia, unspecified; E11.40 Type 2 diabetes mellitus with diabetic neuropathy, unspecified

== ENCOUNTER → 2017-04-28 | Outpatient (CLI) | payer OTHER ==
[2017-04-28 17:57] LABS: BASO % 0.1 %; BASO ABS # 0.01 K/uL (0-0.2); EOS % 0.8 %; EOS ABS # 0.06 K/uL (0-0.5); HEMATOCRIT 39.7 % (42-52); HEMOGLOBIN 11.5 g/dL (14.0-18.0); IG# 0.01 K/uL (0.00-0.02); LYMPH % 20.2 %; LYMPH ABS # 1.53 K/uL (1.2-3.4); MEAN CELL VOLUME 77.5 fL (80-100); MEAN CORPUSCULAR HEMOGLOBIN 22.5 pg (25-34); MEAN PLATELET VOLUME 10.4 fL (7.4-10.4); MONO % 7.1 %; MONO ABS # 0.54 K/uL (0.11-0.59); NEUT % 71.7 %; NEUT ABS # 5.43 K/uL (1.4-6.5); PLATELET COUNT 289 K/uL (130-400); RED CELL DISTRIBUTION WIDTH CV 15.5 % (11.5-14.5); RED CELL DISTRIBUTION WIDTH SD 43.6 fL (36.4-46.3); WHITE BLOOD COUNT 7.58 K/uL (4.8-10.8)
[2017-04-28 18:25] LABS: BLOOD UREA NITROGEN 11 mg/dl (7-18); CARBON DIOXIDE 28 mmol/L (21-32); CREATININE 0.83 mg/dl (0.60-1.40); GLUCOSE 54 mg/dl (70-99); POTASSIUM 3.9 mmol/L (3.5-5.1); SODIUM 139 mmol/L (136-145); TRANSFERRIN 328 mg/dl (200-360)
== END | disposition home or self-care (01) ==
LOC: C.LABMFLN 10:58
PROVIDERS: ATTEND Family Medicine
DX: I10 Essential (primary) hypertension (principal); D50.9 Iron deficiency anemia, unspecified; E11.40 Type 2 diabetes mellitus with diabetic neuropathy, unspecified; Z79.4 Long term (current) use of insulin

== ENCOUNTER → 2017-07-29 | Outpatient (CLI) | payer OTHER ==
[2017-07-29 13:09] LABS: HEMATOCRIT 41.9 % (42-52); HEMOGLOBIN 12.7 g/dL (14.0-18.0)
[2017-07-29 13:53] LABS: HEMOGLOBIN A1C 8.7 % (4.5-5.6)
== END | disposition home or self-care (01) ==
LOC: C.LABMFLN 10:30
PROVIDERS: ATTEND Family Medicine
DX: E55.9 Vitamin D deficiency, unspecified (principal); E53.8 Deficiency of other specified B group vitamins; D50.9 Iron deficiency anemia, unspecified; E11.40 Type 2 diabetes mellitus with diabetic neuropathy, unspecified

== ENCOUNTER → 2017-10-27 | Outpatient (CLI) | payer OTHER ==
[2017-10-27 13:03] LABS: BASO % 0.2 %; BASO ABS # 0.01 K/uL (0-0.2); EOS % 0.9 %; EOS ABS # 0.04 K/uL (0-0.5); LYMPH % 31.6 %; LYMPH ABS # 1.43 K/uL (1.2-3.4); MEAN CELL VOLUME 81.7 fL (80-100); MEAN CORPUSCULAR HEMOGLOBIN 25.3 pg (25-34); MEAN PLATELET VOLUME 10.7 fL (7.4-10.4); MONO % 8.6 %; MONO ABS # 0.39 K/uL (0.11-0.59); NEUT % 58.7 %; NEUT ABS # 2.66 K/uL (1.4-6.5); PLATELET COUNT 219 K/uL (130-400); RED CELL DISTRIBUTION WIDTH CV 15.8 % (11.5-14.5); RED CELL DISTRIBUTION WIDTH SD 47.6 fL (36.4-46.3); WHITE BLOOD COUNT 4.53 K/uL (4.8-10.8)
[2017-10-27 13:45] LABS: ALBUMIN 3.5 gm/dl (3.4-5.0); ALKALINE PHOSPHATASE 133 U/L (45-117); ALT/SGPT 28 U/L (12-78); AST/SGOT 24 U/L (15-37); BLOOD UREA NITROGEN 12 mg/dl (7-18); CALCIUM 8.2 mg/dl (8.5-10.1); CARBON DIOXIDE 25 mmol/L (21-32); CHOLESTEROL 93 mg/dl (0-200); CREATININE 0.83 mg/dl (0.60-1.40); GLUCOSE 172 mg/dl (70-99); LDL CHOLESTEROL CALCULATED 46 mg/dl; POTASSIUM 3.9 mmol/L (3.5-5.1); SODIUM 137 mmol/L (136-145); TOTAL PROTEIN 6.5 gm/dl (6.4-8.2)
[2017-10-27 13:49] LABS: HEMOGLOBIN A1C 8.7 % (4.5-5.6)
== END | disposition home or self-care (01) ==
LOC: C.LABMFLN 06:58
PROVIDERS: ATTEND Family Medicine
DX: E55.9 Vitamin D deficiency, unspecified (principal); E53.8 Deficiency of other specified B group vitamins; D50.9 Iron deficiency anemia, unspecified; E11.40 Type 2 diabetes mellitus with diabetic neuropathy, unspecified; E11.65 Type 2 diabetes mellitus with hyperglycemia

== ENCOUNTER 2019-02-11 06:16 | Inpatient (IN) ==
--- NOTE | 2019-01-17 13:41 | PAT Medication Instructions ---
Medication Instructions Date of Service January 17, 2019 Home Medications Medication Instructions Recorded calcium carbonate 600 mg calcium 600 mg PO DAILY #90 tab 09/28/18 (1,500 mg) tablet pen needle, diabetic 32 gauge x #500 ea 09/28/18 1/4" ergocalciferol (vitamin D2) 50,000 50,000 units PO WEEKLY #12 cap 11/10/18 unit capsule aspirin 25 mg-dipyridamole 200 mg 1 cap PO BID #180 cap 12/03/18 capsule,ext.release 12 hr multiphase cyanocobalamin (vit B-12) 1,000 1,000 mcg SQ MONTHLY #3 ml 01/04/19 mcg/mL injection solution hydrocodone 5 mg-acetaminophen 325 1 tab PO QID PRN #100 tab 01/04/19 mg tablet syringe with needle 3 mL 25 x 5/8" #10 ea 01/04/19 calcium carbonate 600 mg calcium (1,500 mg) tablet 600 mg PO DAILY ergocalciferol (vitamin D2) 50,000 unit capsule 50,000 units PO WEEKLY aspirin 25 mg-dipyridamole 200 mg capsule,ext.release 12 hr multiphase 1 cap PO BID cyanocobalamin (vit B-12) 1,000 mcg/mL injection solution 1,000 mcg SQ MONTHLY hydrocodone 5 mg-acetaminophen 325 mg tablet 1 tab PO QID PRN Iron 27 mg PO DAILY atorvastatin 40 mg PO QAM dulaglutide [Trulicity] 1.5 mg SUBCUT WK insulin aspart U-100 [Novolog Flexpen U-100 Insulin] 10 unit SUBCUT TIDM insulin glargine [Basaglar KwikPen U-100 Insulin] 50 unit SUBCUT QAM lisinopril 5 mg PO QAM Continue as directed ergocalciferol (vitamin D2) 50,000 unit capsule 50,000 units PO WEEKLY cyanocobalamin (vit B-12) 1,000 mcg/mL injection solution 1,000 mcg SQ MONTHLY dulaglutide [Trulicity] 1.5 mg SUBCUT WK ASK your prescriber and surgeon aspirin 25 mg-dipyridamole 200 mg capsule,ext.release 12 hr multiphase 1 cap PO BID DO NOT take the morning of surgery calcium carbonate 600 mg calcium (1,500 mg) tablet 600 mg PO DAILY Iron 27 mg PO DAILY insulin aspart U-100 [Novolog Flexpen U-100 Insulin] 10 unit SUBCUT TIDM lisinopril 5 mg PO QAM Take morning of surgery With a small sip of water, OTHERWISE NOTHING TO EAT OR DRINK AFTER MIDNIGHT: hydrocodone 5 mg-acetaminophen 325 mg tablet 1 tab PO QID PRN (okay to take up to 4 hours prior to surgery if needed) atorvastatin 40 mg PO QAM Take evening before surgery hydrocodone 5 mg-acetaminophen 325 mg tablet 1 tab PO QID PRN (if needed) insulin aspart U-100 [Novolog Flexpen U-100 Insulin] 10 unit SUBCUT TIDM Insulin Dependent Diabetic Patients Check glucose morning of surgery. If glucose greater than 150, take HALF of the amount of insulin that you normally take: insulin glargine [Basaglar KwikPen U-100 Insulin] take 25 units If glucose less than 150, do not take any: insulin glargine [Basaglar KwikPen U-100 Insulin] Other Notes If you have any questions please call us at [phone] or [phone] or [phone] or [phone]
--- NOTE | 2019-01-18 10:57 | Anesthesiology Consultation ---
Date of Service January 18, 2019 Assessment & Plan (1) Encounter for pre-operative examination: - Check BSG AM DOS - Aspirin-dipyridamole (Aggrenox) instructions per surgeon/prescriber. Chart Review Chart Review: Pending: Refer to Additional Notes / Consult section (pending preop testing (labs, EKG, CXR)) and Patient seen in Pre Admission Testing Teaching & Discussion Pre-Anesthesia Teaching/Discussion Notes: Instructed NPO after midnight before surgery,except medications with 15 cc of water. Medication instructions provi ded according to the PAT guidelines. History Surgery Operation Date: 02/11/19 07:45 Proposed Procedures p L3-L4 Decompression and Fusion, L4-L5 Hardware Removal with Spinal Cord Monitoring - Nicanor Camacho, Height/Weight Height: 6 ft 6 in Weight: 109.6 kg Allergies Allergy/AdvReac Type Severity Reaction Status Date / Time No Known Drug Allergies Allergy Verified 01/12/19 11:24 Medications Home Medications Medication Instructions Recorded Confirmed Last Taken calcium carbonate 600 mg calcium 600 mg PO DAILY #90 tab 09/28/18 01/12/19 Unknown (1,500 mg) tablet pen needle, diabetic 32 gauge x #500 ea 09/28/18 01/04/19 Unknown 1/4" ergocalciferol (vitamin D2) 50,000 50,000 units PO WEEKLY #12 cap 11/10/18 01/12/19 Unknown unit capsule aspirin 25 mg-dipyridamole 200 mg 1 cap PO BID #180 cap 12/03/18 01/12/19 Unknown capsule,ext.release 12 hr multiphase cyanocobalamin (vit B-12) 1,000 1,000 mcg SQ MONTHLY #3 ml 01/04/19 01/12/19 Unknown mcg/mL injection solution hydrocodone 5 mg-acetaminophen 325 1 tab PO QID PRN #100 tab 01/04/19 01/12/19 Unknown mg tablet syringe with needle 3 mL 25 x 5/8" #10 ea 01/04/19 01/04/19 Unknown Iron 27 mg PO DAILY 01/12/19 01/12/19 Unknown atorvastatin 40 mg PO QAM 01/12/19 01/12/19 Unknown dulaglutide [Trulicity] 1.5 mg SUBCUT WK 01/12/19 01/12/19 Unknown insulin aspart U-100 [Novolog 10 unit SUBCUT TIDM 01/12/19 01/12/19 Unknown Flexpen U-100 Insulin] insulin glargine [Basaglar KwikPen 50 unit SUBCUT QAM 01/12/19 01/12/19 Unknown U-100 Insulin] lisinopril 5 mg PO QAM 01/12/19 01/12/19 Unknown Past Medical History Medical History Lumbar stenosis with neurogenic claudication Peripheral neuropathy Iron deficiency anemia per records Benign essential hypertension per records Hyperlipidemia per records Generalized osteoarthritis Diabetes IDDM History of stroke 2 years ago= right sided facial/finger numbness residual- on aspirin- dipyridamole Exercise / Class Metabolic Activity II 4-5 Yardwork/Stairs/Walk up hill (very active for work/golfing) Past Family History Family History Other Family history of diabetes mellitus Past Surgical History Surgical History History of back surgery History of colonoscopy History of gastric bypass History of shoulder surgery RX2 Past Anesthesia History No Hx of Anesthesia Complications and No Family Hx of Anesthesia Complications History of PONV No Hx of PONV and No Hx of Motion Sickness Social History Smoking Status: Never smoker Do You Dip or Chew Tobacco: No (HX OF / NONE CURRENT) Hx Alcohol Use: Yes Alcohol type: beer alcohol intake frequency: holidays/special occasions only Hx Substance Use: No substance use type: does not use Review of Systems Patient denies chest pain, shortness of breath, dyspnea on exertion, cough, wheezing, palpitations. Physical Exam Vital Signs VITALS BP 119/72 P 72 TEMP 97.5 SP02 98%RA RESP 16 PHYSICAL Full neck and c-spine range of motion. Full TMJ range of motion. TMD 3 finger breaths Mallampati Score 2 Dentition: full dentures upper/lower; edentulous Lungs: clear throughout to auscultation Cardiac: regular rate and rhythm, no murmurs noted Spine: normal Carotid arteries: negative bruit Extremities: no edema Trimmed parry Testing Laboratory Results 01/04/19 HGBA1C 9.8% (surgeon made aware*)
--- NOTE | 2019-01-18 11:34 | XRay Report ---
XR chest Pre-admission PA/Lat CLINICAL HISTORY: pat preoperative COMPARISON STUDY: No previous studies for comparison. FINDINGS: The bones soft tissues and hemidiaphragms are normal. The cardiomediastinal silhouette is n ormal. The lungs are clear. The pulmonary vasculature is normal. IMPRESSION: Negative chest. The above report was generated using voice recognition software. It may contain grammatical, syntax or spelling errors. Electronically signed by: Luis E Aguila M.D. 01/18/2019 11:33 AM
[2019-01-18 13:26] LABS: Basophils # (auto) 0.01 K/uL (0-0.2); Basophils % (auto) 0.1 %; Eosinophils # (auto) 0.06 K/uL (0-0.5); Eosinophils % (auto) 0.9 %; Hematocrit (blood only) 42.8 % (42-52); Hemoglobin 13.8 g/dL (14.0-18.0); Immature Granulocytes # (auto) 0.01 K/uL (0.00-0.02); Immature Granulocytes % (auto) 0.1 %; Lymphocytes % (auto) 19.5 %; Mean Corpuscular Hgb Conc 32.2 g/dL (32-36); Mean Corpuscular Volume 86.8 fL (80-100); Mean Platelet Volume 10.6 fL (7.4-10.4); Monocytes # (auto) 0.43 K/uL (0.11-0.59); Monocytes % (auto) 6.4 %; Neutrophils # (auto) 4.86 K/uL (1.4-6.5); Platelet Count 239 K/uL (130-400); RDW Coefficient of Variation 13.5 % (11.5-14.5); RDW Standard Deviation 42.6 fL (36.4-46.3); Red Blood Count 4.93 M/uL (4.7-6.1); White Blood Count 6.67 K/uL (4.8-10.8)
[2019-01-18 13:30] LABS: Appearance Urine Clear (Clear); Bilirubin Urine Negative (Negative); Blood Urine Negative (Negative); Color Urine Yellow; Glucose Urine UA 3+ (Negative); Ketones Urine Negative (Negative); Leukocyte Esterase Urine Negative (Negative); Nitrite Urine Negative (Negative); Protein Urine Negative (Negative); Specific Gravity Urine 1.009 (1.000-1.030); Urobilinogen Urine Negative (Negative)
[2019-01-18 13:32] LABS: BUN Creatinine Ratio 12.2 (10-20); Calcium 8.7 mg/dl (8.5-10.1); Creatinine Clr Calc Pharmacy 111.8 ml/min; Est GFR (African American) 105.1; Est GFR (Non-African American) 90.7; Potassium 4.4 mmol/L (3.5-5.1)
[2019-01-18 13:46] LABS: Partial Thromboplastin Time 26.2 Seconds (21.0-31.0); Prothrombin Time 10.3 Seconds (9.0-12.0)
[~2019-02-11 06:16] MED LIST changes: +ACETAMINOPHEN 500 MG TAB PO SCH; -AGG PO; -ATOR-24 PO; +CEFAZOLIN 2000MG 2,000 MG/15 ML SYR IV SCH; -CHOL1000 PO; +CeleBREX 200 MG CAP PO SCH; -FERR325T18 PO; +GABAPENTIN 600 MG DOSE PO SCH; -INSU100I23 SQ; -LISI-729 PO; +LR 15ML/HR IV SCH; -NVLG SQ; -RXC5 PO
[2019-02-11] MEDS ORDERED: BACITRACIN INJ 50,000 UNIT VIAL ONE (07:02)
[2019-02-11] MEDS ORDERED: BUPIVACAINE/EPINEPHRINE 0.25% 1:200,000 30 ML VIAL ONE (07:02)
[2019-02-11] MEDS ORDERED: LARYING-O-JET KIT (LTA) ONE (07:12)
[2019-02-11] MEDS ORDERED: NEOSTIGMINE METHYLSULFATE 1 MG/ML 10ML VIAL ONE (07:12)
[2019-02-11] MEDS ORDERED: SODIUM CHLORIDE 0.9% INJ 10 ML VIAL ONE (07:12)
[2019-02-11] MEDS ORDERED: fentaNYL citrate 100 MCG/2 ML VIAL ONE (07:12)
[2019-02-11] MEDS ORDERED: DEXAMETHASONE SOD INJ 4 MG/ML VIAL ONE (07:12)
[2019-02-11] MEDS ORDERED: HYDROmorphone INJ 2 MG/ML SYR/VIAL ONE (07:12)
[2019-02-11] MEDS ORDERED: ONDANSETRON INJ 2 MG/ML 2 ML VIAL ONE ×2 (07:12→10:12)
[2019-02-11] MEDS ORDERED: MIDAZOLAM HCL 1 MG/ML 2ML VIAL ONE (07:12)
[2019-02-11] MEDS ORDERED: GLYCOPYRROLATE 0.2 MG/ML VIAL ONE ×2 (07:12→10:12)
[2019-02-11] MEDS ORDERED: LIDOCAINE HCL 2% 2 ML VIAL/AMP(20MG/ML) INFIL ONE (07:12)
[2019-02-11] MEDS ORDERED: PROPOFOL IV EMULSION 10 MG/ML 20 ML VIAL IV ONE ×2 (07:12→10:18)
[2019-02-11] MEDS ORDERED: ROCURONIUM BROMIDE 10 MG/ML 5 ML VIAL ONE (07:12)
--- NOTE | 2019-02-11 07:28 | History & Physical Bridge Note ---
Date of Service February 11, 2019 History & Physical Bridge Note I have examined the patient, reviewed the History & Physical and in the interval since the performance of the History & Physical I have noted the following changes of clinical significance: no changes noted
--- NOTE | 2019-02-11 07:29 | History & Physical Report ---
Date of Service February 11, 2019 Assessment & Plan (1) Spinal stenosis, lumbar region with neurogenic claudication: Decompression fusion L3-L4 hardware removal L4-L5 Present on Admission?: Yes History of Present Illness Chief Complaint: Back and leg pain Primary Care Provider: Armen Noonan MD This is a 58-year-old male presents with chronic persistent back and leg pain peer after failing extensive course of nonoperative care is here for surgical dimension. Allergies Allergy/AdvReac Type Severity Reaction Status Date / Time No Known Drug Allergies Allergy Verified 02/11/19 06:47 Home Medications Home Medications Medication Instructions Recorded Confirmed Type calcium carbonate 600 mg calcium 600 mg PO DAILY #90 tab 09/28/18 02/11/19 Rx (1,500 mg) tablet pen needle, diabetic 32 gauge x #500 ea 09/28/18 01/26/19 Rx 1/4" ergocalciferol (vitamin D2) 50,000 50,000 units PO WEEKLY #12 cap 11/10/18 02/11/19 Rx unit capsule aspirin 25 mg-dipyridamole 200 mg 1 cap PO BID #180 cap 12/03/18 02/11/19 Rx capsule,ext.release 12 hr multiphase cyanocobalamin (vitamin B-12) 1,000 mcg SQ MONTHLY #3 ml 01/04/19 02/11/19 Rx 1,000 mcg/mL injection solution hydrocodone 5 mg-acetaminophen 325 1 tab PO QID PRN #100 tab 01/04/19 02/11/19 Rx mg tablet syringe with needle 3 mL 25 x 5/8" #10 ea 01/04/19 01/26/19 Rx atorvastatin 40 mg PO QAM 01/12/19 02/11/19 History dulaglutide [Trulicity] 1.5 mg SUBCUT WK 01/12/19 02/11/19 History insulin aspart U-100 [Novolog 10 unit SUBCUT TIDM 01/12/19 02/11/19 History Flexpen U-100 Insulin] insulin glargine [Basaglar KwikPen 50 unit SUBCUT QAM 01/12/19 02/11/19 History U-100 Insulin] lisinopril 5 mg PO QAM 01/12/19 02/11/19 History ferrous gluconate 236 mg (27 mg 236 mg PO DAILY tab 10/30/19 11/15/19 History iron) tablet Past Med/Surg History Family History Other Family history of diabetes mellitus Social History (Updated 09/29/18 @ 10:52 by Alexis Mckay) Preferred Language: Belarusian Communication Ability: Effective Spa Host Required: No Beliefs That Will Affect Care: None Current Living Situation: Spouse Other Information That Helps Us Care for You: No Feels Safe at Home: Yes Smoking Status: Never smoker Do You Dip or Chew Tobacco: No (HX OF / NONE CUR RENT) ; Hx Alcohol Use: Yes Alcohol type: beer Hx Substance Use: No Physical Exam Physical Exam: Patient is alert and oriented neurologically intact. Results & Data Vital Signs (Past 12 Hours) Vital Signs Temp Pulse Resp BP Pulse Ox 02/11/19 06:56 36.6 C 74 18 136/78 97
[2019-02-11] MEDS ORDERED: ALBUT/IPRATROP 3MG/0.5MG NEB 3 ML VIAL INH PRN (08:19)
[2019-02-11] MEDS ORDERED: fentaNYL citrate 100 MCG/2 ML VIAL IV PRN (08:19)
[2019-02-11] MEDS ORDERED: ePHEDrine sulfate 50 MG/ML AMP IV PRN ×2 (08:19→08:44)
[2019-02-11] MEDS ORDERED: ATROPINE SULFATE 0.1 MG/ML 10ML SYR IV PRN ×2 (08:19→08:44)
[2019-02-11] MEDS ORDERED: ONDANSETRON INJ 2 MG/ML 2 ML VIAL IV PRN ×3 (08:19→12:05)
[2019-02-11] MEDS ORDERED: FLOSEAL HEMOSTATIC MATRIX 10ML TOP ONE (08:37)
[2019-02-11] MEDS ORDERED: ALBUMIN HUMAN 5% 12.5 GM/250 ML VIAL IV ONE (08:52)
--- NOTE | 2019-02-11 10:16 | Operative Report ---
Post Operative Report Pre & Post Diagnosis Operation Date: 02/11/19 07:45 Pre-Op Diagnosis: Lumbar spinal stenosis with neurogenic claudication Post-Op Diagnosis: Same I identified the patient and participated in the time-out.: Yes Procedure Operation Date: 02/11/19 07:45 Actual Procedures #1 removal of posterior instrumentation L4-L5 per #2 exploration of fusion L4-L5 per #3 lumbar decompression with bilateral medial facetectomies foraminotomies L2-3 L3-4. #4 posterior spinal fusion L3-4. #5 placement posterior instrumentation L3-4 L4-5. #6 interbody fusion L3-4 per #7 placed a peek cage 14 x 26 mm at L3-4. #8 placement of locally harvested morselized autograft in the posterior lateral gutters per #9 placement infuse collagen sponge, master graft in the posterior lateral gutters and ostial amp and interbody space. Surgeon Nicanor Camacho, DO Wireless Network Engineer Gagandeep Puri Estimated Blood Loss 600 Findings See Below Patient did lose over 600 cc of blood throughout the procedure increasing technical difficulty in order to perform the procedure adding at least 25% increase in operative time. Specimens None Indications This is a 58-year-old male who presents with above-mentioned diagnosis after failing extensive course of nonoperative care is here for surgical intervention. Description of Procedure Patient was met with identified and informed consent obtained. Patient was then taken to the operative suite underwent intubation placed in the prone position the Cyril table on top of the Prasad frame. All bony prominences well-padded eyes inspected to ensure no external pressure placed upon the peer at this point the lumbar spine was prepped and draped in normal sterile fashion. Sharp dissection with the assistance of Bovie cautery was performed down to and exposing the lamina and transverse processes of L3 and instrumentation at L4-L5 bilaterally. Then proceed remove the hardware bilaterally exploring the fusion mass noting to be intact. And then performed a complete laminectomy of L3 partial laminectomy of L2 including bilateral medial vasectomies and foraminotomies addressing severe spinal stenosis as well as facet cyst at L3-4 on the left. After this was removed pedicle screws were placed in all 3 L4-L5 bilaterally with assistance of fluoroscopy the purposes angela placed. By way of a transforaminal approach on the right complete discectomy of 034 was performed endplates curetted to subcortical being bone and a 14 x 26 mm peek cage filled with ostium bone graft tapped in position. The rods were then locked in final position bilaterally. The transverse processes of L3 and L4 burred to subcortical bleeding bone. Infuse collagen sponge master graft and local autograft placed in the posterior lateral gutters. 15 round MAMTA drain inserted. The incision was then closed with 1 Vicryl in the fascia 2-0 Vicryl substantially and 4 Monocryl for final skin closure. Steri-Strip sterile dressing was placed. Patient will continue to PACU stable disc. Please note Gagandeep Puri present throughout the entire procedure involved in patient positioning complex portions of the surgery and final skin closure. Lastly spinal cord monitoring was utilized throughout the procedure and no changes noted. I attest to the content of the Intraoperative Record and any orders documented therein. Any exceptions are noted below.
--- NOTE | 2019-02-11 10:41 | Fluoroscopy Report ---
FL lumbar spine 2-3V CLINICAL HISTORY: 58 years-old Male presenting with L3-L4 DECOMPRESSION AND FUSION L4-L5 HARDWARE REM OVAL. TECHNIQUE: 2 fluoroscopic image(s) recorded as part of an intraoperative procedure. COMPARISON: 01/26/2017. FINDINGS/IMPRESSION: Posterior bilateral transpedicular screw and angela fixation of L3-L5 with interbody spacers. Laminectom y defects at L3 and L4. Please see surgical report for further details. Fluoroscopy dosage (mGy): 9.03. Fluoroscopy time: 10.7 seconds. Number or time of high level fluoroscopy (HLF), digital spot, or digital subtraction images: 0. Electronically signed by: Jackson Amaya M.D. 02/11/2019 10:40 AM
[2019-02-11] MEDS ORDERED: HYDROmorphone INJ 1 MG/ML SYRINGE ONE ×2 (10:57→11:29)
[2019-02-11] MEDS: fentaNYL citrate 100 MCG/2 ML VIAL IV PRN ×2 (10:58→11:03)
[2019-02-11] MEDS: HYDROmorphone INJ 2 MG/ML SYR/VIAL IV PRN ×4 (11:08→11:33)
--- NOTE | 2019-02-11 11:28 | Anesthesiology Progress Note ---
Date of Service February 11, 2019 Anesthesia Post Procedure Vital Signs Vital Signs: Temp Pulse Pulse Resp BP Pulse Ox 02/11/19 11:20 85 16 145/79 H 98 02/11/19 11:10 97 H 16 160/90 H 97 02/11/19 11:00 89 16 149/78 H 100 02/11/19 10:50 89 16 137/82 100 02/11/19 10:41 37.0 C 93 H 16 142/84 H 98 02/11/19 06:56 36.6 C 74 18 136/78 97 Pain Intensity Right Leg: Pain Intensity: 3 Transfer of Care Handoff Completed per policy Notes Mental Status: alert / awake / arousable and participated in evaluation Patient Amnestic to Procedure: Yes Nausea / Vomiting: adequately controlled Pain: adequately controlled Airway Patency, RR, SpO2: stable & adequate BP & HR: stable & adequate Hydration State: stable & adequate Anesthetic Complications: no major complications apparent and Pt Satisfied with anesthetic care
[2019-02-11] MEDS ORDERED: ACETAMINOPHEN 500 MG TAB PO PRN (12:05)
[2019-02-11] MEDS ORDERED: ONDANSETRON 4 MG OD TAB PO PRN (12:05)
[2019-02-11] MEDS ORDERED: BISACODYL 10 MG SUPP PR PRN (12:05)
[2019-02-11] MEDS ORDERED: DO NOT ADMINISTER FLU VACCINE PRN (12:05)
[2019-02-11] MEDS ORDERED: HYDROmorphone INJ 0.5 MG/0.5 ML SYR IV PRN (12:05)
[2019-02-11] MEDS ORDERED: DO NOT ADMINISTER PNEUMOCOCCAL VACCINE PRN (12:05)
[2019-02-11] MEDS ORDERED: LORazepam 0.5 MG TAB PO PRN (12:05)
[2019-02-11] MEDS ORDERED: SOD PHOSPHATE/SOD BIPHOSPHATE ENEMA 132 ML BTL PR PRN (12:05)
[2019-02-11] MEDS ORDERED: HYDROmorphone INJ 1 MG/ML SYRINGE IV PRN (12:05)
[2019-02-11] MEDS ORDERED: ACETAMINOPHEN 1,000 MG/100 ML VIAL IV PRN (12:05)
[2019-02-11] MEDS ORDERED: ALUMINUM/MAGNESIUM SUSP 30 ML UDC PO PRN (12:05)
[2019-02-11] MEDS ORDERED: METOCLOPRAMIDE HCL INJ 5 MG/ML 2 ML VIAL IV PRN (12:05)
[2019-02-11] MEDS ORDERED: TRAMADOL HCL 50 MG TABLET PO PRN (12:05)
[2019-02-11] MEDS ORDERED: LORazepam 0.5 MG/1 ML VIAL IV PRN (12:05)
[2019-02-11] MEDS ORDERED: FAMOTIDINE 20 MG TAB PO PRN (12:05)
[2019-02-11] MEDS ORDERED: PROMETHAZINE HCL 12.5 MG in SODIUM CHLORIDE 0.9% 50 ML IV PRN (12:05)
[2019-02-11] MEDS ORDERED: MAGNESIUM HYDROXIDE SUSP 30 ML UDC PO PRN (12:05)
[2019-02-11] MEDS ORDERED: NALOXONE HCL 0.4 MG/1 ML VIAL/CARP IV PRN (12:05)
[2019-02-11] MEDS: SODIUM CHLORIDE 0.9% 1000ML 1,000 ML IV SCH ×2 (12:49→19:16)
[2019-02-11] MEDS: KETOROLAC 30 MG/ML VIAL IV SCH ×2 (12:49→17:55)
[2019-02-11] MEDS ORDERED: PHENYLEPHRINE 100MCG/ML 5ML SYR ONE (14:24)
[2019-02-11] MEDS ORDERED: PHENYLEPHRINE HCL 10 MG/ML VIAL ONE (14:24)
[2019-02-11] MEDS ORDERED: ePHEDrine sulfate 50 MG/ML SYR ONE (14:24)
[2019-02-11] MEDS: CEFAZOLIN 2000MG 2,000 MG/15 ML SYR IV SCH (15:52)
--- NOTE | 2019-02-11 17:07 | Hospitalist Consultation ---
Date of Consultation February 11, 2019 Assessment & Plan (1) Lumbar stenosis with neurogenic claudication: post op fusion and decompression with Dr. Camacho 02/11 Monitor for acute blood loss - cbc am DVT proph, pain control per primary (2) Benign essential hypertension: Continue home lisinopril (3) Hyperlipidemia: Continue home statin (4) Diabetes mellitus type 2, uncontrolled: glycemic pharmacist consult (5) History of stroke: Resume ASA when ok with surgery, continue statin Supervising Physician Co-Signing Physician Notes I supervised Jessica Thorpe NP on this patient's care. I examined the patient today independently of her. I discussed the plan of care with her with the plan being as written in her note except for any following changes/exceptions: None. Patient in no distress on exam. Wakes easily, but still drowsy from anesthesia. Plan as per Ms. Thorpe's note. History of Present Illness Attending Physician: Nicanor Camacho, DO History of Present Illness Mr. Goncalves is feeling well post operatively. He has some pain but otherwise no complaints. Pmhx: CVA, DMII, anemia, htn Social: , owns a [employer] company, never smoker, occasional beer Family: no significant medical history Allergies Allergy/AdvReac Type Severity Reaction Status Date / Time No Known Drug Allergies Allergy Verified 02/11/19 06:47 Home Medications Home Medications Medication Instructions Recorded Confirmed Type calcium carbonate 600 mg calcium 600 mg PO DAILY #90 tab 09/28/18 02/11/19 Rx (1,500 mg) tablet pen needle, diabetic 32 gauge x #500 ea 09/28/18 01/26/19 Rx 1/4" ergocalciferol (vitamin D2) 50,000 50,000 units PO WEEKLY #12 cap 11/10/18 02/11/19 Rx unit capsule aspirin 25 mg-dipyridamole 200 mg 1 cap PO BID #180 cap 12/03/18 02/11/19 Rx capsule,ext.release 12 hr multiphase cyanocobalamin (vitamin B-12) 1,000 mcg SQ MONTHLY #3 ml 01/04/19 02/11/19 Rx 1,000 mcg/mL injection solution hydrocodone 5 mg-acetaminophen 325 1 tab PO QID PRN #100 tab 01/04/19 02/11/19 Rx mg tablet syringe with needle 3 mL 25 x 5/8" #10 ea 01/04/19 01/26/19 Rx Basaglar KwikPen U-100 Insulin 50 unit SUBCUT QAM 01/12/19 02/11/19 History Novolog Flexpen U-100 Insulin 10 unit SUBCUT TIDM 01/12/19 02/11/19 History Trulicity 1.5 mg SUBCUT WK 01/12/19 02/11/19 History atorvastatin 40 mg PO QAM 01/12/19 02/11/19 History lisinopril 5 mg PO QAM 01/12/19 02/11/19 History ferrous gluconate 236 mg (27 mg 236 mg PO DAILY tab 01/26/19 02/11/19 History iron) tablet oxycodone 5 mg PO Q6H PRN #30 tab 02/11/19 Rx tramadol 50 mg PO Q6H PRN #30 tab 02/11/19 Rx Patient History Family History Other Family history of diabetes mellitus Social History (Updated 09/29/18 @ 10:52 by Alexis Mckay) Preferred Language: Austrian Communication Ability: Effective Director Auto Required: No Beliefs That Will Affect Care: None Current Living Situation: Spouse Other Information That Helps Us Care for You: No Feels Safe at Home: Yes Smoking Status: Never smoker Do You Dip or Chew Tobacco: No (HX OF / NONE CURRENT) ; Hx Alcohol Use: Yes Alcohol type: beer Hx Substance Use: No Review of Systems Constitutional: no fever and no chills Respiratory: no cough and no dyspnea Cardiovascular: no chest pain, no dyspnea, no palpitations and no lightheadedness Gastrointestinal: no nausea and no vomiting Genitourinary: no dysuria Musculoskeletal: + back pain Integumentary: no rash Physical Exam Physical Exam: General: no distress Eyes: normal inspection, PERLL Respiratory: chest non tender, clear to auscultation, normal breath sounds, no respiratory distress, no accessory muscle use Cardiac: regular rate and rhythm, no rub or gallop, no murmur, no edema, no jvd GI/: active bowel sounds, no abd pain or tenderness, soft, non distended Extremities: normal range of motion, normal strength, non tender Neuro/Psych: alert and oriented x 3, normal mood and affect Skin: normal color, dry Results & Data Vital Signs (Past 12 Hours) Vital Signs Temp Pulse Pulse Resp BP Pulse Ox 02/11/19 15:05 36.8 C 87 18 132/69 95 02/11/19 14:09 36.6 C 77 12 145/68 H 98 02/11/19 12:56 82 16 136/64 97 02/11/19 12:29 91 H 16 137/72 98 02/11/19 12:00 37.0 C 92 H 17 146/70 H 96 02/11/19 11:50 36.6 C 82 16 129/70 97 02/11/19 11:40 87 16 153/79 H 99 02/11/19 11:30 85 16 146/80 H 99 02/11/19 11:20 85 16 145/79 H 98 02/11/19 11:10 97 H 16 160/90 H 97 02/11/19 11:00 89 16 149/78 H 100 02/11/19 10:50 89 16 137/82 100 02/11/19 10:41 37.0 C 93 H 16 142/84 H 98 02/11/19 06:56 36.6 C 74 18 136/78 97 PG Care Time/CCT Total # of Minutes Spent Total Time Spent with Patient: Total time spent is greater than 50% in coordination of care (as documented) at patient's floor/unit and/or counseling patient:
[2019-02-11] MEDS: OXYCODONE HCL IR 5 MG TAB (IMMEDIATE RELEASE) PO PRN ×2 (17:55→21:37)
[2019-02-11] MEDS ORDERED: PHARMACY GLYCEMIC MGMT CONSULT PRN (18:04)
[2019-02-11] MEDS ORDERED: GLUCAGON FOR INJ 1 MG VIAL IM PRN (18:15)
[2019-02-11] MEDS ORDERED: NovoLIN-N (NPH) PER UNIT CHARGE SQ ONE (18:15)
[2019-02-11] MEDS ORDERED: DEXTROSE 50% 50 ML SYRINGE IV PRN (18:15)
[2019-02-11] MEDS ORDERED: GLUCOSE 10 TABS/TUBE PO PRN (18:15)
[2019-02-11] MEDS ORDERED: GLUCOSE 40% GEL 15 GM TUBE PO PRN (18:15)
[2019-02-11] MEDS ORDERED: CARBOHYDRATES FOR HYPOGLYCEMIA PO PRN (18:15)
[2019-02-11] MEDS: INSULIN ASPART 100 UNITS/ML 3 ML PEN SC SCH ×2 (19:15→21:39)
[2019-02-11] MEDS: DIPYRIDAMOLE/ASPIRIN CAP PO SCH (21:37)
[2019-02-11] MEDS: DOCUSATE SODIUM/SENNA 50/8.6MG TAB PO SCH (21:37)
[2019-02-12] MEDS: CEFAZOLIN 2000MG 2,000 MG/15 ML SYR IV SCH (00:09)
[2019-02-12] MEDS: KETOROLAC 30 MG/ML VIAL IV SCH ×2 (00:10→05:35)
[2019-02-12] MEDS: INSULIN ASPART 100 UNITS/ML 3 ML PEN SC SCH ×6 (00:24→21:04)
[2019-02-12] MEDS: POLYETHYLENE (MIRALAX) 17 GM PACK PO SCH ×4 (05:35→23:07)
[2019-02-12 05:51] LABS: Basophils # (auto) 0.01 K/uL (0-0.2); Basophils % (auto) 0.1 %; Eosinophils # (auto) 0.04 K/uL (0-0.5); Eosinophils % (auto) 0.5 %; Hematocrit (blood only) 34.4 % (42-52); Hemoglobin 10.8 g/dL (14.0-18.0); Immature Granulocytes # (auto) 0.01 K/uL (0.00-0.02); Immature Granulocytes % (auto) 0.1 %; Lymphocytes # (auto) 1.09 K/uL (1.2-3.4); Lymphocytes % (auto) 14.4 %; Mean Corpuscular Hemoglobin 27.3 pg (25-34); Mean Corpuscular Hgb Conc 31.4 g/dL (32-36); Mean Corpuscular Volume 86.9 fL (80-100); Mean Platelet Volume 10.3 fL (7.4-10.4); Monocytes # (auto) 0.62 K/uL (0.11-0.59); Monocytes % (auto) 8.2 %; Neutrophils # (auto) 5.78 K/uL (1.4-6.5); Neutrophils % (auto) 76.7 %; Platelet Count 210 K/uL (130-400); RDW Coefficient of Variation 13.5 % (11.5-14.5); Red Blood Count 3.96 M/uL (4.7-6.1); White Blood Count 7.55 K/uL (4.8-10.8)
[2019-02-12 06:30] LABS: BUN Creatinine Ratio 11.4 (10-20); Calcium 8.1 mg/dl (8.5-10.1); Creatinine Clr Calc Pharmacy 132.1 ml/min; Est GFR (African American) 111.6; Est GFR (Non-African American) 96.3; Potassium 3.9 mmol/L (3.5-5.1)
--- NOTE | 2019-02-12 08:19 | Orthopedic Progress Note ---
Date of Service February 12, 2019 Assessment & Plan (1) Spinal stenosis, lumbar region with neurogenic claudication: This time will initiate physical therapy monitor his MAMTA output anticipate discharge home Thursday or Thursday. Present on Admission?: Yes Subjective Patient's back pain is controlled leg symptoms improved. Physical Exam Physical Exam: Patient is in the chair at the bedside. Is good strength testing. Appears comfortable. Results & Data Vital Signs (Past 12 Hours) Vital Signs Temp Pulse Resp BP BP Pulse Ox 02/12/19 07:07 37.2 C 100 H 18 125/73 97 02/12/19 04:01 36.9 C 78 16 124/66 96 02/12/19 00:21 36.8 C 78 16 123/70 98
[2019-02-12] MEDS: ATORVASTATIN 40 MG TAB PO SCH (08:40)
[2019-02-12] MEDS: CALCIUM CARBONATE 1250MG TAB PO SCH (08:40)
[2019-02-12] MEDS: LISINOPRIL 5 MG TAB PO SCH (08:40)
[2019-02-12] MEDS: FERROUS SULFATE 325 MG TAB PO SCH (08:40)
[2019-02-12] MEDS: DIPYRIDAMOLE/ASPIRIN CAP PO SCH ×2 (08:40→21:00)
[2019-02-12] MEDS: OXYCODONE HCL IR 5 MG TAB (IMMEDIATE RELEASE) PO PRN ×4 (08:45→23:11)
[2019-02-12] MEDS ORDERED: INSULIN GLARGINE SOLOSTAR 100 UNITS/ML 3 ML PEN SC SCH (09:00)
[2019-02-12] MEDS ORDERED: INSULIN GLARGINE SOLOSTAR 100 UNITS/ML 3 ML PEN SQ SCH (09:00)
--- NOTE | 2019-02-12 10:33 | Pharmacy Report ---
Glycemic Control Consultation - Date of Service February 12, 2019 - Scope Scope: Glycemic Pharmacist consulted by Jessica Thorpe on 02/12/19 for glycemic control and to write orders per [facility] inpatient glycemic control protocol - Objective Weight: 110.087 kg Accuchecks BSG (last 24hrs): 02/11/19 02/11/19 02/11/19 10:44 12:22 17:14 Glucose POC Glucose 121 H 146 H 203 H 02/11/19 02/12/19 02/12/19 21:04 00:17 04:00 Glucose POC Glucose 277 H 131 H 92 02/12/19 02/12/19 05:02 08:13 Glucose 90 POC Glucose 202 H Laboratory Data (last 24hrs): 02/12/19 05:02 Potassium 3.9 Carbon Dioxide 27 Anion Gap 6.0 Creatinine 0.83 Est Cr Clr Drug Dosing 132.1 - Recent Pertinent Medications Outpatient Anti-diabetic Regimen: * Trulicity QW, Novolog 10u TIDM, Basaglar 50u QAM * A1c = 9.8 % 01/04/19 - Assessment & Plan Assessment & Plan: ASSESSMENT: * Mr. Goncalves is a 58yo M type 2 diabetic. POD: 1 for lumber decompression. Outpt glycemic management is poor as evidenced by his A1C of 9.8%, historically he seems to hover around 9%. He is ordered a diet. He received 4mg of IV DXM perioperatively. PLAN FOR INPATIENT GLYCEMIC CONTROL: * Holding outpatient Trulicity * Basal insulin * basaglar 25u APPLE PICKING SUPERVISOR, then NPH 40u given yesterday evening to help mitigate steroid-induced hyperglycemia. * Will provide home rx of basaglar/lantus 50u QAM starting today * Bolus insulin * NovoLog per scale ACHS or Q6hrs while NPO * Goal Range: Low 110 mg/dL - High 140 mg/dL * Correction Factor: 15 mg/dL/unit * Nutritional / Prandial insulin per carb ratio of 1 unit per 5 grams CHO consumed * Please note that the plan above was derived based on current level of insulin resistance and hospital stress. These recommendations are appropriate for inpatient admission only. Plan of care upon discharge will need to be reassessed to avoid potential outpatient hypo/hyperglycemia. Thank you.
[2019-02-12] MEDS ORDERED: INSULIN GLARGINE SOLOSTAR 100 UNITS/ML 3 ML PEN SC STA (10:35)
--- NOTE | 2019-02-12 17:33 | Hospitalist Progress Note ---
Date of Service February 12, 2019 Assessment & Plan (1) Lumbar stenosis with neurogenic claudication: post op fusion and decompression with Dr. Camacho 02/11 DVT proph, pain control per primary (2) Benign essential hypertension: Continue home lisinopril (3) Hyperlipidemia: Continue home statin (4) Diabetes mellitus type 2, uncontrolled: glycemic pharmacist consult (5) History of stroke: Resume ASA when ok with surgery, continue statin (6) Acute blood loss anemia: decreased 3g since surgery monitor CBC Medicine will sign off at this time, please let us know if you have any questions. Subjective Mr. Goncalves is doing well, no complaints. Looking forward to hopefully discharging tomorrow. ROS Constitutional: no chills, aches, sweats or fever Respiratory: no sob,cough, sputum, or wheezing Cardiac: no chest pain, palpitations, edema, orthopnea or lightheadedness GI: no abdominal pain, nausea, vomiting, diarrhea or constipation : no dysuria or hesitancy Extremities: no joint pain or weakness Skin: no rash All other systems reviewed and negative Physical Exam Physical Exam: General: no distress Eyes: normal inspection, PERLL Respiratory: chest non tender, clear to auscultation, normal breath sounds, no respiratory distress, no accessory muscle use Cardiac: regular rate and rhythm, no rub or gallop, no murmur, no edema, no jvd GI/: active bowel sounds, no abd pain or tenderness, soft, non distended Extremities: normal range of motion, normal strength, non tender Neuro/Psych: alert and oriented x 3, normal mood and affect Skin: normal color, dry Results & Data Vital Signs (Past 12 Hours) Vital Signs Temp Pulse Resp BP BP Pulse Ox 02/12/19 15:23 36.6 C 77 16 119/64 98 02/12/19 11:27 37.2 C 80 16 111/63 97 02/12/19 07:07 37.2 C 100 H 18 125/73 97 PG Care Time/CCT Total # of Minutes Spent Total Time Spent with Patient: Total time spent is greater than 50% in coordi nation of care (as documented) at patient's floor/unit and/or counseling patient:
[2019-02-12] MEDS: DOCUSATE SODIUM/SENNA 50/8.6MG TAB PO SCH (20:59)
[2019-02-13] MEDS: OXYCODONE HCL IR 5 MG TAB (IMMEDIATE RELEASE) PO PRN ×2 (04:05→08:47)
[2019-02-13] MEDS: POLYETHYLENE (MIRALAX) 17 GM PACK PO SCH (06:13)
[2019-02-13] MEDS: DIPYRIDAMOLE/ASPIRIN CAP PO SCH (08:43)
[2019-02-13] MEDS: ATORVASTATIN 40 MG TAB PO SCH (08:44)
[2019-02-13] MEDS: CALCIUM CARBONATE 1250MG TAB PO SCH (08:44)
[2019-02-13] MEDS: FERROUS SULFATE 325 MG TAB PO SCH (08:44)
[2019-02-13] MEDS: LISINOPRIL 5 MG TAB PO SCH (08:45)
--- NOTE | 2019-02-13 08:47 | Discharge Summary ---
Date of Service February 13, 2019 Admission HPI Per Admitting Provider This is a 58-year-old male presents with chronic persistent back and leg pain peer after failing extensive course of nonoperative care is here for surgical dimension. Discharge Data Consultations 02/11/19 12:05 Consult Case Management - Discharge Planning Routine Consult Hospitalist Routine Procedures Performed Operation Date: 02/11/19 07:45 Actual Procedures p L3-L5 Decompression and Fusion; Spinal Cord Monitoring; Applicaiton of BMP(Not Applicable) - Nicanor Camacho DO s L4-L5 Hardware Removal(Not Applicable) - Nicanor Camacho DO Hospital Course (1) Lumbar stenosis with neurogenic claudication: Patient is a 58-year-old male who presents with history physical examination and radiographic images consistent with the above-mentioned diagnosis. For this reason is brought to the operating room on 02/11/2019 and underwent a lumbar decompression at L3-4 with removal of previous hardware at L4-5 and continuation fusion from L3-L5. He left the operating room with a MAMTA drain in place and was transferred to PACU in stable condition. He was placed on GI DVT prophylaxis and then transferred to the orthopedic floor. Throughout his hospital course his calves remained supple nontender and on 02/13/2019 the patient was deemed safe for home discharge. We have reviewed his discharge instructions he is to avoid any bending or lifting he should change dressing once daily until the dressing was dry then he may leave it uncovered. He should not drive until he sees us in the office in approximately 2 weeks. If he develops any increased pain fevers chills or drainage from the incision he will contact our office otherwise we will see him for routine follow-up in 2 weeks.
[2019-02-13] MEDS: INSULIN ASPART 100 UNITS/ML 3 ML PEN SC SCH (08:50)
[2019-02-13] MEDS ORDERED: INSULIN GLARGINE SOLOSTAR 100 UNITS/ML 3 ML PEN SC SCH (09:00)
[2019-02-14] MEDS ORDERED: ERGOCALCIFEROL 50,000 UNITS CAP PO SCH (09:00)
== END 2019-02-13 12:02 | disposition home or self-care (01) | DRG 454 ==
LOC: ASU 06:16 → 3E 10:52